=== PATIENT | male | born 1960 | race Caucasian/White ===

== ENCOUNTER 2024-03-30 19:11 | Emergency (ER) | payer BC ==
[~2024-03-30] VITALS: Ht 175.3 cm; Wt 74.8 kg
[2024-03-30] MEDS ORDERED: NEBI10TA2 PO (19:23)
[2024-03-30] MEDS ORDERED: LEVO100T PO (19:23)
[2024-03-30] MEDS ORDERED: APIX5TAB PO (19:23)
[2024-03-30] MEDS ORDERED: THYR90TA PO (19:23)
[2024-03-30] MEDS ORDERED: MELA10TA PO (19:23)
[2024-03-30 20:09] LABS: BASOPHILS # (AUTO) 0.1 K/UL (0.0-0.2); BASOPHILS % (AUTO) 0.4 % (0.0-2.0); EOSINOPHILS # (AUTO) 0.1 K/uL (0.0-0.7); EOSINOPHILS % (AUTO) 0.7 % (0.0-7.0); HEMATOCRIT 41.1 % (36.7-47.1); HEMOGLOBIN 14.4 g/dL (12.5-16.3); LYMPHOCYTES # (AUTO) 0.8 K/uL (0.8-4.8); LYMPHOCYTES % (AUTO) 5.5 % (20.5-51.5); MEAN CORPUSCULAR HGB CONC 35 g/dL (32.5-36.3); MEAN CORPUSCULAR VOLUME 88.6 fL (73.0-96.2); MONOCYTES # (AUTO) 0.7 K/uL (0.1-1.30); MONOCYTES % (AUTO) 4.9 % (0.0-11.0); NEUTROPHILS # (AUTO) 12.6 K/uL (1.8-8.9); NEUTROPHILS % (AUTO) 88.5 % (38.5-71.5); PLATELET COUNT (AUTO) 463 K/uL (152-348); RED BLOOD CELL COUNT(AUTO) 4.64 MIL/uL (4.06-5.63); RED CELL DISTRIBUTION WIDTH 12.8 % (12.1-16.2); WHITE BLOOD COUNT (AUTO) 14.3 K/uL (3.6-10.2)
[2024-03-30 20:11] LABS: DIFFERENTIAL COMMENT 1
[2024-03-30 20:14] LABS: *BILIRUBIN,URIN NEGATIVE (NEGATIVE); *CLARITY,URINE CLEAR (CLEAR); *COLOR,URINE YELLOW (YELLOW); *KETONES,URINE NEGATIVE (NEGATIVE); *PROTEIN,URINE NEGATIVE (NEGATIVE); *UROBILINOGEN,URINE 0.2 E.U./dl (NORMAL); LEUKOCYTE ESTERASE ,URINE NEGATIVE (NEGATIVE); NITRITE, URINE NEGATIVE (NEGATIVE); PH,URINE 5.5 (5.0-8.0); UGLUCOSE NEGATIVE (NEGATIVE)
[2024-03-30 20:15] LABS: *BLOOD, URINE NEGATIVE (NEGATIVE)
[2024-03-30] MEDS ORDERED: ACETAMINOPHEN 500 MG TABLET ONE (20:35)
[2024-03-30] MEDS: ACETAMINOPHEN 500 MG TABLET PO ONE (20:39)
[2024-03-30 20:46] LABS: ALBUMIN 3.8 g/dL (3.4-5.0); BILIRUBIN,TOTAL 0.5 mg/dL (0.2-1.0); CALCIUM 9.4 mg/dL (8.5-10.1); CREATININE 1.2 mg/dL (0.6-1.3); MAGNESIUM 2.3 mg/dL (1.8-2.4); TOTAL PROTEIN, SERUM 8.6 g/dL (6.4-8.2)
[2024-03-30] MEDS ORDERED: AMOX-430 PO (21:10)
[2024-03-30] MEDS ORDERED: ONDA4TAB5 PO (21:10)
[2024-03-30] MEDS ORDERED: METR500T PO (21:10)
[2024-03-30 21:17] LABS: C-REACTIVE PROTEIN 1.66 mg/dL (0.00-0.30)
[2024-03-30] MEDS ORDERED: AMOXICILLIN-CLAVUL 875-125MG TABLET ONE (21:19)
[2024-03-30] MEDS ORDERED: METRONIDAZOLE 500 MG TABLET ONE (21:19)
[2024-03-30] MEDS: AMOXICILLIN-CLAVUL 875-125MG TABLET PO ONE (21:22)
[2024-03-30] MEDS: METRONIDAZOLE 500 MG TABLET PO ONE (21:22)
[2024-03-30 21:27] VITALS: BP 158/85; O2SAT 96
== END 2024-03-30 21:28 | disposition home or self-care (01) ==
LOC: ER 19:11
DX: K57.32 Diverticulitis of large intestine without perforation or abscess without bleeding (principal); R10.30 Lower abdominal pain, unspecified; R50.9 Fever, unspecified; Z79.01 Long term (current) use of anticoagulants; Z79.890 Hormone replacement therapy; Z79.899 Other long term (current) drug therapy; Z86.711 Personal history of pulmonary embolism; Z90.79 Acquired absence of other genital organ(s)
CPT/HCPCS: 36415; 83605; 83690; 83735; 85025; 86140; A4606; A4663; A9150